=== PATIENT | male | born 2000 | race Hispanic/Latino ===

== ENCOUNTER → 2020-01-20 15:13 | Outpatient (CLI) | payer SELFPAY ==
[2020-01-20 12:12] VITALS: BMI 36.8
[2020-01-20 15:35] LABS: Bacteria 0 SEEN /hpf (None Seen); Red Blood Cells-Urine 0 SEEN /hpf (0-5); Squamous Epithelial Cells - UA 0 SEEN /hpf (0-5)
[2020-01-20 16:01] LABS: Color, Urine Yellow (Yellow); Glucose, Dipstick Normal (Normal); Ketone-Dipstick Negative (Negative); Leukocyte Esterase-Dipstick Negative /ul (Negative); Nitrite-Dipstick Negative (Negative); Occult Blood-Urine Negative /ul (Negative); Protein-Dipstick 15 mg/dl (Negative); Specific Gravity, Urine 1.015 (1.002-1.030); Urine Bilirubin Dipstick Negative (Negative); Urine Clarity Clear (Clear); Urine Urobilinogen Normal (Normal); Urine pH 6.5 (5.0 - 8.0)
[2020-01-20 16:23] LABS: Mucous, Urine 1+ /hpf (<or=2+); White Blood Cells 0-5 SEEN /hpf (0-5)
== END ==
PROVIDERS: Visit Provider Physician Assistant
DX: Z87.440 Personal history of urinary (tract) infections (principal)
CPT/HCPCS: 81001; 87086; 87088

== ENCOUNTER → 2020-02-16 12:40 | Outpatient (CLI) | payer SELFPAY ==
[2020-01-28 10:16] VITALS: BMI 36.8
--- NOTE | 2020-02-16 12:47 | MRI_ITS ---
STUDY: MRI BRAIN WITHOUT CONTRAST REASON FOR EXAM: Male, 19 years old. PERSISTENT VERTIGO TECHNIQUE: Standardized multiplanar fat and water weighted pulse sequences were obtained. COMPARISON: None. FINDINGS: Normal size of the ventricles and extra-axial spaces for the patient''s age. Normal white matter tracts of the supratentorial brain. There is no evidence for recent intracranial ischemia or other cause of cytotoxic edema on diffusion weighted imaging (DWI). Normal T2* images of the brain without demonstrated susceptibility artifact. There is no demonstrated hemosiderin stain. Normal bilateral basal ganglia. Normal thalami. There is no extra-axial fluid accumulation. Normal flow voids within the major intracranial circulation suggesting patency by spin echo criteria. Normal sella turcica, pituitary gland, infundibular stalk, optic chiasm and hypothalamus. Normal tectal plate and pineal gland. Normal midbrain, semaj and medulla. Normal cerebellum. Normal basal cisterns. Normal bilateral temporal bones. Normal bilateral internal auditory canals. No demonstrated orbital abnormality, within the constraints of a routine brain study. Mucous retention cyst in the right x-ray sinus consistent with chronic sinusitis. Normal calvarium and skull base. Normal visualized soft tissue structures. Normal visualized upper cervical spine. MRI/Brain without Contrast IMPRESSION: Normal unenhanced MRI of the brain. Electronically Signed: Rachid Evans MD at 14:01 EST Tel , Service support ,
== END ==
PROVIDERS: PCP Internal Medicine; Referring Provider Internal Medicine; Visit Provider Internal Medicine
DX: H81.4 Vertigo of central origin (principal)
CPT/HCPCS: 70551

== ENCOUNTER 2021-06-30 22:33 | Emergency (ER) | payer OTHER, SELFPAY ==
[2021-06-30 22:34] VITALS: BP 155/104; PULSE 133; RESP 16; TEMP 36.2; O2SAT 97; BMI 36.5
--- NOTE | 2021-06-30 23:19 | EX.ED.DYSGE1 ---
HPI History of Present Illness Chief Complaint: Allergic Reaction Informant: patient Onset/Context/Timing Onset: Weeks Context: Sudden Onset Timing: Continuous Quality: Hives Location: Generalized Worsened by: Nothing Relieved by: Nothing Narrative Narrative: Patient presents with urticaria that began 2 weeks ago. Patient states it became worse today. Patient is unsure if he has a allergy to milk or dairy products. Patient states that he was seen at the urgent care a couple weeks ago for this. Patient states it started to improve. Patient states he went to [place] last week. Patient states he did not eat much dairy while he was down there and the rash improved. Patient states that he had pizza today and the rash became worse today. Patient admits to some itching. Patient denies any difficulty breathing or difficulty swallowing. [facility] Medical History Asthma Difficulty balancing when standing Hypercholesterolemia Home Medications atorvastatin 10 mg tablet 10 mg PO DAILY 01/20/20 [History Last Taken Unknown] meclizine 25 mg tablet 25 mg PO TID PRN #30 tab 01/20/20 [Rx Last Taken Unknown] prednisone 60 mg PO DAILY #15 tablet 07/01/21 [Rx Last Taken Unknown] Allergy/AdvReac Type Severity Reaction Status Date / Time No Known Allergies Allergy Unverified 06/30/21 22:35 Surgical History No significant past surgical history Social History Smoking Status: Never smoker alcohol intake: never substance use type: does not use what type of physical activity do you participate in: none ROS ROS ED Constitutional Constitutional ED: Denies chills or fever(s) Eyes Eyes: Denies blurry vision or change in vision ENT ENT ED: Denies rhinorrhea or sore throat Cardiovascular Cardiovascular: Denies chest pain or palpitations Respiratory/Chest Respiratory/Chest: Denies cough or dyspnea Gastrointestinal Gastrointestinal: Denies nausea or vomiting Genitourinary Genitourinary ED: Denies dysuria or hematuria Musculoskeletal Musculoskeletal: Denies back pain or neck pain Integumentary Reports rash; Denies abscess Neurologic Neurologic: Denies headache(s) or weakness Allergic/Immunologic Allergic/Immunologic ED: Reports urticaria; Denies mouth swelling EXAM Physical Exam Const Vital Signs: 06/30/21 22:34 Temperature 97.2 F L Temperature Source Temporal Pulse Rate 133 H Respiratory Rate 16 Blood Pressure 155/104 H Blood Pressure Mean 121 Pulse Ox 97 Oxygen Delivery Method Room Air Positive well nourished and well developed General Appearance ED: well developed and NAD HEENT Reports moist mucous membranes Neck supple and no JVD Resp normal respiratory effort and clear to auscultation bilaterally Cardio regular rate and regular rhythm GI normal to inspection, nondistended, normoactive bowel sounds and non-tender Palpation: soft Neuro oriented x3, CN's II-XII intact bilaterally and no sensory deficits noted Sensorium / Orientation: alert Motor Exam: strength 5/5 throughout Psych mental status grossly normal MDM MDM MDM Narrative Medical decision making narrative: Patient was given Benadryl, Solu-Medrol, and Pepcid here. The urticaria seem to be improving. Patient was given a prescription for a short course of prednisone. Patient was instructed to follow-up with his primary care physician in 5 to 7 days. Patient was advised that he may need allergy testing. Patient and friend understood and were agreeable with the plan. All questions were answered. Discharge Plan Triage Chief Complaint: Allergic Reaction ED Provider: Denilson Paniagua Dx/Rx/DC Orders Clinical Impression: Urticaria Instructions: ED General Allergic Reactions, ED Hives (Adult) Prescriptions: New prednisone 20 MG tablet 60 mg PO DAILY Qty: 15 RF: 0 No Action meclizine 25 mg tablet 25 mg PO TID PRN (Reason: dizziness) Qty: 30 RF: 0 atorvastatin 10 mg tablet 10 mg PO DAILY RF: 0 Primary Care Provider: Care Physician,No Primary Referrals: Freedom Kyle MD [STAFF PHYSICIAN] - 5-7 Days Care Physician,No Primary [Primary Care Provider] - Disposition Disposition: Home, Self Care
[2021-06-30] MEDS: MethylPREDNISolone 125 MG/2 ML Vial 60 MG IV (23:34)
[2021-06-30] MEDS: DiphenhydrAMINE 50 MG/ML Syringe 25 MG IV (23:35)
[2021-06-30] MEDS: Famotidine 200 MG/20 ML MDV 20 MG in 0.9% Normal Saline (Pres. free 8 ML 300 MG IV (23:57)
== END 2021-07-01 00:23 | disposition home or self-care (01) ==
PROVIDERS: Emergency Provider Emergency Medicine; Visit Provider Emergency Medicine
DX: L50.9 Urticaria, unspecified (principal); E78.00 Pure hypercholesterolemia, unspecified
CPT/HCPCS: 96374; 96375; 99283; A4216; J3490